=== PATIENT | female | born 1975 | race Hispanic/Latino ===

== ENCOUNTER 2016-06-21 20:55 | Inpatient (IN) | payer MEDICAID ==
[~2016-06-21] VITALS: Ht 170.2 cm; Wt 95.1 kg
[2016-06-21 21:02] VITALS: BP 116/78; PULSE 94; RESP 26; O2SAT 98
--- NOTE | 2016-06-21 21:31 | DRSVH ---
PROCEDURE: X-RAY CHEST, TWO VIEWS ([id number]) INDICATIONS: PAIN TECHNIQUE: 2 views of the chest were acquired. COMPARISON: [facility], , CHEST 1VW (PORTABLE), 03/29/2009, 13:24. FINDINGS: Surgical changes and devices: None. Lungs and pleura: No pleural effusions or pneumothorax. Lungs are clear. Mediastinum: Mediastinal contours are normal. Heart size is normal. Bones and chest wall: No suspicious bony abnormalities. Soft tissues appear unremarkable. IMPRESSION: No acute or active disease is seen in the two-view chest. Cause of right-sided chest pain is not identified. Dictated by: King Sanchez M.D. on 06/21/2016 at 21:29 Approved by: King Sanchez M.D. on 06/21/2016 at 21:29
[2016-06-22] VITALS (9 sets, daily range): BP systolic 99–112; BP diastolic 57–71; PULSE 61–88; RESP 18–21; O2SAT 95–100
--- NOTE | 2016-06-22 00:59 | ED.REPORT ---
HPI-General Illness Date of Service Jun 22, 2016 ED Provider: Dr. Josh Stoddard D.O. A healthy 40 year old female presents to the ED with right sided flank pain onset two days ago. The pain radiates across her back and is exacerbated with sneezing and coughing. She also reports vomiting secondary to her pain. The patient denies fever, dysuria, diarrhea, or any injury/trauma. Nursing Notes Stated Complaint: RT SIDED PAIN Chief Complaint: General Complaint Nursing Notes Reviewed: Yes Allergies: Coded Allergies: No Known Allergies (Verified , 12/27/15) Scheduled Levonorgestrel/Ethinyl Estradiol (Chateal) 1 Each Tablet 1 TABLET PO DAILY General Time Seen by MD: 00:59 Chief Complaint Other (Right-Sided Flank Pain) Hx Obtained From: Patient Arrived By: Walk-in Sudden in Onset?: No Onset Occurred: 2 days ago Symptom Duration: Since onset Location: : Abdomen (Right flank) Quality: Painful Severity: Current: Moderate Severity: Maximum: Moderate Associated with: Reports: Vomiting, Denies: Fever Exacerbated by: Moving affected area Pertinent Negative: Relieved by nothing Recent Healthcare: No recent doctor visit Similar Sx Previous: No Past Medical History Past Medical History Healthy Past Surgical History Denies Smoking History Never Smoker Social History Alcohol Use: In recovery Drug Use: Denies drug use Ambulatory Status Independent Review of Systems Full Review of Systems Constitutional: Denies: Fever GI: Reports: Diarrhea, Vomiting Female: Reports: Flank pain (Right ), Denies: Dysuria Musculoskeletal: Reports: Back pain Complete sys rev & neg: except as marked. Physical Exam Vital Signs Vital Signs Date Time Temp Pulse Resp B/P Pulse Ox O2 Delivery O2 Flow Rate FiO2 06/22/16 03:38 82 21 102/61 95 Room Air 06/21/16 21:02 36.8 94 26 116/78 98 Room Air Initial VS: Reviewed Head / Eyes: Atraumatic, Normocephalic ENT: Conjunctiva normal, No scleral icterus Neck: Supple, Full range of motion Respiratory: Breath sounds normal, Clear to auscultation, No respiratory distress Skin: Warm, Dry, No cyanosis Neurologic: Alert, Oriented, Nonfocal Psychiatric: Mood/affect normal, Behavior normal, Normal thought content General/Constitutional: Awake, Alert Cardiovascular: Heart rate NL, Regular rhythm Heart Rate / Rhythm: Positive: Tachycardia Abdomen: Soft Tenderness/Guarding/Rebound: Positive: Tender flank R R flank pain with ROM Abdomen benign Interpretation & Diagnostics Lab Results Interpretation Result Diagram: 06/22/16 1744 06/22/16 0121 Test 06/22/16 01:06 06/22/16 01:21 06/22/16 02:20 06/22/16 04:15 Urine Color Yellow (YELLOW) Urine Appearance Clear (CLEAR,HAZY) Urine pH 6.0 (5.0-8.0) Urine Specific [place] >1.030 (1.003-1.035) Urine Protein Negativemg/dL (NEG,TRACE) Urine Glucose (UA) Negativemg/dL (NEGATIVE) Urine Ketones Negativemg/dL (NEGATIVE) Urine Occult Blood Negative (NEGATIVE) Urine Nitrite Negative (NEGATIVE) Urine Bilirubin Negative (NEGATIVE) Urine Urobilinogen Normalmg/dL (NORMAL) Urine Leukocyte Esterase Negative (NEGATIVE) Urine RBC 0-2/hpf (0-2) Urine WBC 0-5/hpf (0-5) Urine Epithelial Cells Moderate/hpf (NONE-MOD) Urine Crystals None seen (NONE SEEN) Urine Bacteria Few/hpf (NONE-FEW) Urine Hyaline Casts None/lpf (NONE) Urine Granular Casts None seen (NONE SEEN) Urine Waxy Casts None seen (NONE SEEN) Urine Red Blood Cell Casts None seen (NONE SEEN) Urine White Blood Cell Casts None seen (NONE SEEN) Urine Mucus None seen (None Seen) Urine Trichomonas None seen (NONE SEEN) Urine Yeast None (NONE SEEN) Urinalysis Comment None Urine Culture Reflexed Not indicated D-Dimer 7.5mg/L (<0.50) Sodium Level 136mEq/L (134-144) Potassium Level 4.3mEq/L (3.5-5.2) Chloride Level 102mEq/L (97-108) Carbon Dioxide Level 21mmol/L (18-29) Blood Urea Nitrogen 12mg/dL (6-20) Creatinine 0.52mg/dL (0.57-1.00) Estimat Glomerular Filtration Rate 188mL/min (>59) Glucose Level 119mg/dL (60-99) Calcium Level 9.2mg/dL (8.5-10.1) Total Bilirubin 0.2mg/dL (0.0-1.2) Aspartate Amino Transf (AST/SGOT) 15U/L (0-50) Alanine Aminotransferase (ALT/SGPT) 12U/L (0-32) Alkaline Phosphatase 86U/L (25-150) Total Protein 8.0g/dL (6.4-8.4) Albumin 3.5g/dL (3.4-5.0) Hold Urine Received (Received) X-Ray Chest Interpretation Chest Xray Interpretation: IMPRESSION: No acute or active disease is seen in the two-view chest. Cause of right-sided chest pain is not identified. Dictated by: King Sanchez M.D. on 06/21/2016 at 21:29 View: AP & lat Interpretation / Wet Read by: Interpret - Radiologist CT Chest Interpretation CONCLUSION: Pulmonary emboli within the right upper lobe, right middle lobe, and bilateral lower lobe pulmonary arteries. Atelectasis at the right lung base. Findings discussed with Dr. Stoddard at 06/22/2016 3:17:28 AM PST Transmitted to ED by Josh Manrique M.D. at 06/22/2016 - 3:17:29 AM PST Study type: CT pulm angiogram Interpretation / Wet Read by: Interpret - Radiologist CT Abd / Pelvis Interpretation CONCLUSION: Bilateral lower lobe pulmonary emboli. Atelectasis at the right lung base. No acute intra-abdominal abnormality. Findings discussed with Dr. Stoddard at 06/22/2016 3:17:07 AM PST Transmitted to ED by Josh Manrique M.D. at 06/22/2016 - 3:17:09 AM PST Study type: Abdominal CT IV contrast Interpretation / Wet Read by: Interpret - Radiologist Re-Eval/Medical Decision Source of Hx: Old records Time of Eval: 02:08 Patient Status: Condition unchanged Re-Evaluation/Progress Note: Patient is still in pain. Discussed x-ray results and plan for CT. Patient agrees with plan for care and all questions were addressed. Time of Eval: 03:30 Patient Status: Condition improved Re-Evaluation/Progress Note: Discussed with patient CT and lab results, diagnosis, and plan for admit. Patient agrees with plan for care and all questions were addressed. Consultation : Referral / Consult Name: Kinjal Durand MD Consulted With: Hospitalist Call Returned at: 03:30 Car Chaser: Agrees with eval, Agrees with plan, Accepts admit Counseled Regarding: Diagnosis, Lab results, Need for admission Discharge & Departure Primary Impression: Pulmonary embolism Pulmonary embolism type: other Chronicity: acute Acute cor pulmonale presence: without acute cor pulmonale Qualified Code: I26.99 - Other pulmonary embolism without acute cor pulmonale Disposition: Home Discharge Condition All VS Reviewed: Yes Condition: Stable Referrals: NOPCP (PCP) Crit Care Except Billable Proc Time Spent: 30-74 minutes Services Performed: Patient management by me, Time spent at bedside, Reviewing test results, Reviewing imaging, Discussing patient care, Documentation in record Scribe Attestation Portions of this note were transcribed by Keerthi Mast. Dr. Arlyn Pro, personally performed the history, physical exam, and medical decision-making; I reviewed and confirmed the accuracy of the information in the transcribed note. Signed by: Faizan Telles, 06/22/2016, 03:49 Josh Stoddard DO Jun 22, 2016 00:59 KEERTHI MAST Jun 22, 2016 01:10 Car Chaser: Agrees with eval, Agrees with plan, Accepts admit Counseled Regarding: Diagnosis, Lab results, Need for admission Discharge & Departure Primary Impression: Pulmonary embolism Pulmonary embolism type: other Chronicity: acute Acute cor pulmonale presence: without acute cor pulmonale Qualified Code: I26.99 - Other pulmonary embolism without acute cor pulmonale Disposition: Home Discharge Condition All VS Reviewed: Yes Condition: Stable Referrals: NOPCP (PCP) Crit Care Except Billable Proc Time Spent: 30-74 minutes Services Performed: Patient management by me, Time spent at bedside, Reviewing test results, Reviewing imaging, Discussing patient care, Documentation in record Scribe Attestation Portions of this note were transcribed by Keerthi Mast. Dr. Arlyn Pro, personally performed the history, physical exam, and medical decision-making; I reviewed and confirmed the accuracy of the information in the transcribed note. Signed by: Faizan Telles, 06/22/2016, 03:49 Josh Stoddard DO Jun 22, 2016 00:59 KEERTHI MAST Jun 22, 2016 01:10
[2016-06-22] MEDS ORDERED: _oxyCODONE/APAP 5-325 mg Tablet PO PRN (01:10)
[2016-06-22] MEDS ORDERED: fentaNYL-PF 50 mCg/mL 2 mL Inj IVPUSH ONE (01:10)
[2016-06-22] MEDS ORDERED: _Ondansetron ODT 4 mg Tablet PO PRN (01:10)
[2016-06-22 01:32] LABS: BASOPHILS % (AUTO) 0.5 % (0-3); EOSINOPHILS % (AUTO) 3.2 % (0-5); MONOCYTES % (AUTO) 7.1 % (4-12); Mean Corpuscular Hemoglobin 30.9 pg (27.0-35.0); Mean Corpuscular Volume 90.1 fL (81-100); Platelet Count 225 bil/L (150-400)
[2016-06-22] MEDS: Ondansetron 2 mg/mL 2 mL Inj IVPUSH PRN ×2 (01:57→13:45)
[2016-06-22] MEDS ORDERED: Heparin 25K Unit/500mL 0.45 NS 25,000 UNIT in IV Premix 1 EACH IV ONE (03:20)
[2016-06-22] MEDS ORDERED: Heparin 5,000 Unit/mL Inj IVPUSH ONE (03:20)
[2016-06-22 03:22] LABS: APPEARANCE,URINE CLEAR (CLEAR,HAZY); COLOR,URINE YELLOW (YELLOW); OCCULT BLOOD,URINE NEGATIVE (NEGATIVE); UROBILINOGEN,URINE NORMAL (NORMAL)
[2016-06-22] MEDS: HYDROmorphone 0.5 mg/0.5 mL iSecure Syringe IVPUSH PRN ×4 (03:28→20:58)
[2016-06-22] MEDS ORDERED: LEVO1TAB59 PO (03:38)
[2016-06-22] MEDS ORDERED: Alum-Mag Hydrox-Simeth 30 mL Suspension PO PRN (03:50)
[2016-06-22] MEDS ORDERED: Ondansetron 2 mg/mL 2 mL Inj IVPUSH PRN (03:50)
[2016-06-22] MEDS ORDERED: Heparin 25K Unit/500mL 0.45 NS 25,000 UNIT in IV Premix 1 EACH IV SCH (03:50)
[2016-06-22] MEDS ORDERED: Heparin 5,000 Unit/mL Inj IVPUSH PRN (03:50)
--- NOTE | 2016-06-22 04:14 | PCM.HPMED ---
Subjective Date of Service Jun 22, 2016 Primary Provider: Admitting Physician: Primary Care Physician: Surekha Attending Physician: Chief Complaint: Right sided back pain History of Present Illness: This is a 40-year-old female who presents to the emergency room with right sided back pain started 2 days ago. She notes it was worse with movement and deep breath. She notes no particular injury. She notes that it got much worse today and presented to the emergency room. She was found on CTA of chest PE protocol to have multiple right-sided pulmonary emboli with one in the right main artery. She does currently use control pills had been on Norplant for about a year and that was removed last October and started control pills. She has had no recent long periods of immobilization. She has no family history of clotting disorders. She does not smoke. She does have shortness of breath with this but is hemodynamically stable. She denies any lower extremity edema. She denies any fevers or chills. She denies any lightheadedness. Denies any palpitations. Review of Systems: All other review of systems are reviewed and are negative except for as in history of present illness Allergies Coded Allergies: No Known Allergies (Verified , 12/27/15) Home Medications Scheduled Levonorgestrel/Ethinyl Estradiol (Chateal) 1 Each Tablet 1 TABLET PO DAILY PMH Obesity Surgical History Denies Family History Mother with a history of type II diabetes, hyperlipidemia and hypertension Social History Hx Alcohol Use: Yes (OCCAS) Hx Substance Use: No Smoking Status: Never Smoker Living Arrangement: with Family Exam Vital Signs Vital Sign - Last Date Time Temp Pulse Resp B/P Pulse Ox O2 Delivery O2 Flow Rate FiO2 06/22/16 03:38 82 21 102/61 95 Room Air 06/21/16 21:02 36.8 Exam Constitutional: Obese female in mild pain distress Head: Normocephalic atraumatic Eyes: PERRLA DC EOMI Mouth: No lesions Neck: Carotids 2+ over 4 without bruits Chest: Clear to auscultation, patient is tender to palpation over the right lower back area Cor: Regular rate and rhythm S1-S2 without murmur Abdomen: Soft nontender bowel sounds present Extremities: No pedal edema noted no redness Psych: Mood and affect are appropriate Neuro: Alert and oriented 3, motor strength is intact bilaterally Lab and Diagnostics Labs Laboratory Tests 72 Hours Test 06/22/16 01:06 1/11/17 01:21 06/22/16 02:20 Urine Color Yellow (YELLOW) Urine Appearance Clear (CLEAR,HAZY) Urine pH 6.0 (5.0-8.0) Urine Specific [place] >1.030 (1.003-1.035) Urine Protein Negativemg/dL (NEG,TRACE) Urine Glucose (UA) Negativemg/dL (NEGATIVE) Urine Ketones Negativemg/dL (NEGATIVE) Urine Occult Blood Negative (NEGATIVE) Urine Nitrite Negative (NEGATIVE) Urine Bilirubin Negative (NEGATIVE) Urine Urobilinogen Normalmg/dL (NORMAL) Urine Leukocyte Esterase Negative (NEGATIVE) Urine RBC 0-2/hpf (0-2) Urine WBC 0-5/hpf (0-5) Urine Epithelial Cells Moderate/hpf (NONE-MOD) Urine Crystals None seen (NONE SEEN) Urine Bacteria Few/hpf (NONE-FEW) Urine Hyaline Casts None/lpf (NONE) Urine Granular Casts None seen (NONE SEEN) Urine Waxy Casts None seen (NONE SEEN) Urine Red Blood Cell Casts None seen (NONE SEEN) Urine White Blood Cell Casts None seen (NONE SEEN) Urine Mucus None seen (None Seen) Urine Trichomonas None seen (NONE SEEN) Urine Yeast None (NONE SEEN) Urinalysis Comment None Urine Culture Reflexed Not indicated White Blood Count 11.0th/mm3 (3.8-10.1) Red Blood Count 4.34mil/mm3 (3.90-5.20) Hemoglobin 13.4g/dL (12.0-15.6) Hematocrit 39.1% (35.0-46.0) Mean Corpuscular Volume 90.1fL (81-100) Mean Corpuscular Hemoglobin 30.9pg (27.0-35.0) Mean Corpuscular Hemoglobin Concent 34.3% (32.0-37.0) Red Cell Distribution Width 13.4% (12.3-15.4) Platelet Count 225bil/L (150-400) Neutrophils (%) (Auto) 65.0% (40-74) Lymphocytes (%) (Auto) 24.0% (14-46) Monocytes (%) (Auto) 7.1% (4-12) Eosinophils (%) (Auto) 3.2% (0-5) Basophils (%) (Auto) 0.5% (0-3) Activated Partial Thromboplast Time 25.4sec (22.8-33.0) D-Dimer 7.5mg/L (<0.50) Sodium Level 136mEq/L (134-144) Potassium Level 4.3mEq/L (3.5-5.2) Chloride Level 102mEq/L (97-108) Carbon Dioxide Level 21mmol/L (18-29) Blood Urea Nitrogen 12mg/dL (6-20) Creatinine 0.52mg/dL (0.57-1.00) Estimat Glomerular Filtration Rate 188mL/min (>59) Glucose Level 119mg/dL (60-99) Calcium Level 9.2mg/dL (8.5-10.1) Total Bilirubin 0.2mg/dL (0.0-1.2) Aspartate Amino Transf (AST/SGOT) 15U/L (0-50) Alanine Aminotransferase (ALT/SGPT) 12U/L (0-32) Alkaline Phosphatase 86U/L (25-150) Total Protein 8.0g/dL (6.4-8.4) Albumin 3.5g/dL (3.4-5.0) Hold Urine Received (Received) Result Diagram: 06/22/1612006/22/16 0121 12-lead ECG Pending at the time of this dictation Assessment & Plan # Multiple right-sided PEs, acute, present on admission Initiate IV DVT PE heparin protocol There is no need to screen for inherited thrombophilia in this patient since she has now a personal history of VTE and it would be contraindicated to be on estrogen progesterone contraceptives in the future due to the risk of recurrent VTE. Placed on telemetry, check 12-lead EKG IV morphine when necessary pain We will need to start oral anticoagulant in next few days # DVT prophylaxis He is on therapeutic IV heparin # CODE STATUS Patient is full code Pain Evaluation: Adequate Pain Control VTE Prophylaxis: Other (DVT PE protocol IV heparin) Resuscitation Status: CPR: Attempt Resuscitation Time spent 60 minutes Kinjal Durand MD Jun 22, 2016 04:14
--- NOTE | 2016-06-22 07:32 | NUR ---
Admit note Pt admitted to ER # 2 an inpatient status. Admission assessment and screening completed on paper and provided to day RN. VSS. POC reviewed and discussed with pt and he verbalizes understating. Pt is appropriate and cooperative with care. Heparin gtt PE protocol initiated by [employer]. No overt complications noted.
--- NOTE | 2016-06-22 07:49 | NUR ---
transfer to PCC Report called to Kisha Sanz RN on PCC, pt transferred to PCC room 2030 at 0749 in stable condition. Heparin gtt infusing per protocol at 18 units/kg/hr, next PTT at 0900 per report, receiving RN aware. Pt transferred out of ER to PCC at 0749.
[2016-06-22] MEDS: Sodium Chloride LOK Flush 10 mL Syringe IVFLUSH SCH ×3 (08:30→23:45)
[2016-06-22 12:13] LABS: INR 1.01 ratio
--- NOTE | 2016-06-22 14:22 | DRSVH ---
PROCEDURE: CT ANGIO CHEST PULMONARY EMBOLISM ([id number]) INDICATIONS: pleuritic chest pain, right flank pain TECHNIQUE: After the administration of intravenous contrast, 2 mm thick sections acquired from the pulmonary api haroon to the posterior costophrenic angles. 3-dimensional maximum intensity projection (MIP) coronal a nd sagittal reformats were then acquired through the thorax. For radiation dose reduction, the follo wing was used: automated exposure control, adjustment of mA and/or kV according to patient size. COMPARISON: None. FINDINGS: Image quality: Excellent. Pulmonary arteries: Bilateral areas of pulmonary artery filling defects are identified no significant in the lower lobes. Extension is also identified into the right upper lobe. Lungs and pleura: There are patchy areas of opacity identified within the right base. Mediastinum: Heart size is normal, without pericardial effusion. No mediastinal or hilar adenopathy . Thoracic aorta is normal in caliber and enhancement. Esophagus is normal in caliber, without hiat al hernia. Bones and chest wall: No suspicious bony lesions. Ribs and thoracic spine appear intact throughout. Thyroid gland is unremarkable. No axillary or supraclavicular adenopathy. Abdomen: Visualized upper abdominal solid organs appear normal in the early arterial phase of enhanc ement. IMPRESSION: 1. Bilateral pulmonary emboli most significant in the lower lobes as above. 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 There is underlying a ir space disease such as pneumonia cannot be excluded. Dictated by: Katie Washington M.D. on 06/22/2016 at 14:20 Approved by: Katie Washington M.D. on 06/22/2016 at 14:20
--- NOTE | 2016-06-22 14:24 | DRSVH ---
PROCEDURE: CT ABDOMEN AND PELVIS WITH CONTRAST ([id number]) INDICATIONS: pleuritic chest pain, right flank pain TECHNIQUE: After the administration of intravenous contrast, 5 mm thick sections acquired from the diaphragm to the symphysis. 5 mm coronal and sagittal reformats were acquired. For radiation dose reduction, the following was used: automated exposure control, adjustment of mA and/or kV according to patient siz e. COMPARISON: None. FINDINGS: Image quality: Excellent. ABDOMEN: Lung bases: Partially visualized lower lobe pulmonary emboli as well as right basilar patchy opacitie s are noted. Solid organs: Liver and spleen are normal in size and enhancement. Gallbladder is unremarkable. Bi liary system is non dilated. Pancreas enhances normally. No adrenal nodules. Kidneys demonstrate n ormal size and enhancement, without hydronephrosis. Peritoneum and bowel: Bowel loops demonstrate normal wall thickness and caliber. No free fluid or a ir. Nodes and vessels: No retroperitoneal or mesenteric adenopathy by size criteria. Aorta and inferior vena cava are normal in size. Miscellaneous: Fat-containing ventral hernias are present. PELVIS: Genitourinary: Bladder wall thickness is normal. Miscellaneous: No inguinal hernias or adenopathy. Bones: No suspicious bony lesions. No vertebral body compression fractures. IMPRESSION: 1. Bibasilar pulmonary emboli and likely right lower lobe atelectasis. Please see CT chest report of 04/22/17 for further details. 2. No acute intra-abdominal or pelvic process. Dictated by: Katie Washington M.D. on 06/22/2016 at 14:22 Approved by: Katie Washington M.D. on 06/22/2016 at 14:22
[2016-06-22 14:51] LABS: BASOPHILS % (AUTO) 0.3 % (0-3); EOSINOPHILS % (AUTO) 2.7 % (0-5); MONOCYTES % (AUTO) 7.1 % (4-12); Mean Corpuscular Hemoglobin 30.5 pg (27.0-35.0); Mean Corpuscular Volume 91.2 fL (81-100); NEUTROPHILS % (AUTO) 58.7 % (40-74); Platelet Count 212 bil/L (150-400)
[2016-06-22] MEDS ORDERED: 0.9% Sodium Chloride 1,000 ML IV ONE (15:10)
[2016-06-22 16:13] LABS: BASOPHILS % (AUTO) 0.3 % (0-3); EOSINOPHILS % (AUTO) 2.1 % (0-5); MONOCYTES % (AUTO) 7.6 % (4-12); Mean Corpuscular Hemoglobin 30.3 pg (27.0-35.0); Mean Corpuscular Volume 91.4 fL (81-100); NEUTROPHILS % (AUTO) 67.3 % (40-74); Platelet Count 202 bil/L (150-400)
--- NOTE | 2016-06-22 17:26 | PCM.PNMED ---
Subjective Date of Service Jun 22, 2016 Subjective Patient is a 40-year-old female who presented to the emergency room with right sided back pain that began 2 days ago. She stated that her pain became increasing worse over the past two days and she became increasingly short of breath, prompting her visit to the ED. She stated this pain was the same as previous back pain she experienced and could not recall a specific injury. Pain increased with movement and deep breath. A CTA of chest PE protocol was completed in the ED and showed multiple right-sided pulmonary emboli with one in the right main artery. Only specific risk factor patient stated was current use control pills, started this past October after Norplant was removed. She has had no recent long periods of immobilization. She has no family history of clotting disorders. She does not smoke. No recent long distance travel. Denies any lower extremity edema, fevers or chills, syncope, palpitations. Today patient is stable she stated she is feeling short of breath but this has improved since admission, patient stated that when getting up to go to the bathroom she felt dizzy and nauseous, complaining of moderate right sided back pain from mid thoracic to upper lumbar that is reproducible on palpation,non radiating, and worse with movement. She denies fever, chills, vomiting, syncope , change in vision, change in bowel or bladder control. ROS negative except as mentioned above. Exam Vital Signs Vital Sign - Last Date Time Temp Pulse Resp B/P Pulse Ox O2 Delivery O2 Flow Rate FiO2 06/22/16 05:52 36.7 74 19 99/57 96 Room Air Exam Constitutional: female, Alert and oriented 3, no acute distress Head: Normocephalic atraumatic Eyes: PERRLA, EOMI, conjunctiva pale Mouth: No lesions, mucosa dry Neck: Carotids 2+ over 4 without bruits Chest: Clear to auscultation, patient is tender to palpation over the right lower back area and right anterior ribs Cor: Regular rate and rhythm S1-S2 without murmur/gallop/rub Abdomen: Soft nontender, normoactive bowel sounds present, no masses Extremities: No pedal edema noted no redness Psych: Mood and affect are appropriate Neuro: Grossly neurologically intact, motor strength is intact bilaterally IVs and Medications IV Fluids heparin drip per protocol discontinued 06/22/16 1 L NS bolus over 3 hours Lab and Diagnostics Laboratory Tests Test 06/22/16 01:06 06/22/16 01:21 06/22/16 02:20 06/22/16 04:15 Urine Color Yellow (YELLOW) Urine Appearance Clear (CLEAR,HAZY) Urine pH 6.0 (5.0-8.0) Urine Specific [place] >1.030 (1.003-1.035) Urine Protein Negativemg/dL (NEG,TRACE) Urine Glucose (UA) Negativemg/dL (NEGATIVE) Urine Ketones Negativemg/dL (NEGATIVE) Urine Occult Blood Negative (NEGATIVE) Urine Nitrite Negative (NEGATIVE) Urine Bilirubin Negative (NEGATIVE) Urine Urobilinogen Normalmg/dL (NORMAL) Urine Leukocyte Esterase Negative (NEGATIVE) Urine RBC 0-2/hpf (0-2) Urine WBC 0-5/hpf (0-5) Urine Epithelial Cells Moderate/hpf (NONE-MOD) Urine Crystals None seen (NONE SEEN) Urine Bacteria Few/hpf (NONE-FEW) Urine Hyaline Casts None/lpf (NONE) Urine Granular Casts None seen (NONE SEEN) Urine Waxy Casts None seen (NONE SEEN) Urine Red Blood Cell Casts None seen (NONE SEEN) Urine White Blood Cell Casts None seen (NONE SEEN) Urine Mucus None seen (None Seen) Urine Trichomonas None seen (NONE SEEN) Urine Yeast None (NONE SEEN) Urinalysis Comment None Urine Culture Reflexed Not indicated White Blood Count 11.0th/mm3 (3.8-10.1) Red Blood Count 4.34mil/mm3 (3.90-5.20) Hemoglobin 13.4g/dL (12.0-15.6) Hematocrit 39.1% (35.0-46.0) Mean Corpuscular Volume 90.1fL (81-100) Mean Corpuscular Hemoglobin 30.9pg (27.0-35.0) Mean Corpuscular Hemoglobin Concent 34.3% (32.0-37.0) Red Cell Distribution Width 13.4% (12.3-15.4) Platelet Count 225bil/L (150-400) Neutrophils (%) (Auto) 65.0% (40-74) Lymphocytes (%) (Auto) 24.0% (14-46) Monocytes (%) (Auto) 7.1% (4-12) Eosinophils (%) (Auto) 3.2% (0-5) Basophils (%) (Auto) 0.5% (0-3) Activated Partial Thromboplast Time 25.4sec (22.8-33.0) D-Dimer 7.5mg/L (<0.50) Sodium Level 136mEq/L (134-144) Potassium Level 4.3mEq/L (3.5-5.2) Chloride Level 102mEq/L (97-108) Carbon Dioxide Level 21mmol/L (18-29) Blood Urea Nitrogen 12mg/dL (6-20) Creatinine 0.52mg/dL (0.57-1.00) Estimat Glomerular Filtration Rate 188mL/min (>59) Glucose Level 119mg/dL (60-99) Calcium Level 9.2mg/dL (8.5-10.1) Total Bilirubin 0.2mg/dL (0.0-1.2) Aspartate Amino Transf (AST/SGOT) 15U/L (0-50) Alanine Aminotransferase (ALT/SGPT) 12U/L (0-32) Alkaline Phosphatase 86U/L (25-150) Total Protein 8.0g/dL (6.4-8.4) Albumin 3.5g/dL (3.4-5.0) Hold Urine Received (Received) Troponin T 0.010ug/L (0.0-0.011) Test 06/22/16 07:25 06/22/16 09:45 06/22/16 14:42 06/22/16 15:58 Prothrombin Time 10.8sec (8.1-12.5) Prothromb Time International Ratio 1.01ratio Activated Partial Thromboplast Time 106.0sec (22.8-33.0) 75.5sec (22.8-33.0) Troponin T < 0.010ug/L (0.0-0.011) < 0.010ug/L (0.0-0.011) White Blood Count 9.6th/mm3 (3.8-10.1) 9.9th/mm3 (3.8-10.1) Red Blood Count 4.19mil/mm3 (3.90-5.20) 4.29mil/mm3 (3.90-5.20) Hemoglobin 12.8g/dL (12.0-15.6) 13.0g/dL (12.0-15.6) Hematocrit 38.2% (35.0-46.0) 39.2% (35.0-46.0) Mean Corpuscular Volume 91.2fL (81-100) 91.4fL (81-100) Mean Corpuscular Hemoglobin 30.5pg (27.0-35.0) 30.3pg (27.0-35.0) Mean Corpuscular Hemoglobin Concent 33.5% (32.0-37.0) 33.2% (32.0-37.0) Red Cell Distribution Width 13.4% (12.3-15.4) 13.6% (12.3-15.4) Platelet Count 212bil/L (150-400) 202bil/L (150-400) Neutrophils (%) (Auto) 58.7% (40-74) 67.3% (40-74) Lymphocytes (%) (Auto) 31.0% (14-46) 22.6% (14-46) Monocytes (%) (Auto) 7.1% (4-12) 7.6% (4-12) Eosinophils (%) (Auto) 2.7% (0-5) 2.1% (0-5) Basophils (%) (Auto) 0.3% (0-3) 0.3% (0-3) Result Diagram: 06/22/16 0121 06/22/16 0121 X-Rays, CTs and MRIs Chest X Ray IMPRESSION: No acute or active disease is seen in the two-view chest. Cause of right-sided chest pain is not identified. Dictated by: King Sanchez M.D. on 06/21/2016 at 21:29 Approved by: King Sanchez M.D. on 06/21/2016 at 21:29 CT ABDOMEN AND PELVIS WITH CONTRAST IMPRESSION: 1. Bibasilar pulmonary emboli and likely right lower lobe atelectasis. Please see CT chest report of 04/22/17 for further details. 2. No acute intra-abdominal or pelvic process. Dictated by: Katie Washington M.D. on 06/22/2016 at 14:22 Approved by: Katie Washington M.D. on 06/22/2016 at 14:22 CT ANGIO CHEST PULMONARY EMBOLISM IMPRESSION: 1. Bilateral pulmonary emboli most significant in the lower lobes as above. Areas of opacification are present within the right lower lobe are likely chain sales representative of atelectasis. There is underlying air space disease such as pneumonia cannot be excluded. Dictated by: Katie Washington M.D. on 06/22/2016 at 14:20 Approved by: Katie Washington M.D. on 06/22/2016 at 14:20 Assessment & Plan Patient is a 40-year-old female who presented to the emergency room with right sided back pain that began 2 days ago and worsening shortness of breath. A CTA of chest PE protocol was completed in the ED and showed multiple right- sided pulmonary emboli with one in the right main artery. Admitted for treatment of right-sided pulmonary emboli. Hospital day 1. 1. Multiple right-sided PEs, acute, present on admission, active - Etiology at this time unknown, only risk factor identified at this time is use of Oral contraceptives - Continue IV DVT PE heparin protocol, switch to oral anticoagulation with Warfarin tonight or tomorrow morning, monitor INR to reach t - Screen for Hypercoagulable state protein C, S factor leiden V pending - Placed on telemetry, check 12-lead EKG pending - IV morphine when necessary pain - A1C ordered to r/o DM II 2. Right sided back pain, acute, present on admission - Etiology of pain unclear at this time, pain could be pleuritic pain associated with inflammation from the PE, consider MSK related pain, unlikely to be pyelonephritis, UTI, Nephrolithiasis, Retroperitoneal abscess due to CBC and UA negative for signs of infection and CT being negative for stones and abscess. - Continue to monitor and assess - Continue pain management - Zofran for nausea associated with narcotic pain medication 3. Dizziness, acute, not present on admission - Orthostatic ordered - Patient given 1 L NS bolus - Continue to assess DVT prophylaxis She is on therapeutic IV heparin CODE STATUS Patient is full code Disposition: Hospital stay > 2 nights to switch to oral anticoagulation therapy and reach therapeutic INR Pain Evaluation: Adequate Pain Control VTE Prophylaxis: Other (DVT PE protocol IV heparin) Resuscitation Status: CPR: Attempt Resuscitation Attending Statement The patient was seen and examined together with Dr. Marino on 06/22/2016 and I agree with the history, exam and plan as outlined in the note above. . MARQUIS MARINO DO Jun 22, 2016 06:54 Kadeem Wright MD Jun 23, 2016 12:32
[2016-06-22 17:51] LABS: BASOPHILS % (AUTO) 0.3 % (0-3); EOSINOPHILS % (AUTO) 1.6 % (0-5); MONOCYTES % (AUTO) 5.8 % (4-12); Mean Corpuscular Hemoglobin 30.6 pg (27.0-35.0); Mean Corpuscular Volume 91.2 fL (81-100); NEUTROPHILS % (AUTO) 71.9 % (40-74); Platelet Count 202 bil/L (150-400)
--- NOTE | 2016-06-22 19:40 | NUR ---
Flank pain/fatigue Patient alert and oriented x3, CROCKETT, reports full sensation, up SBA to BR voiding without complication. Patient reports dizziness with ambulation, fatigues very easily and SOB increases with movement -- SPO2 remained above 95%. Patient reported continuous right flank pain, ranging from 5-7/10 pain. At one point patient became nauseas from pain -- administered 0.5mg IV Dilaudid as well as 4mg IV zofran, patient reported relief.
[2016-06-23] VITALS (7 sets, daily range): BP systolic 103–115; BP diastolic 70–79; PULSE 72–96; RESP 16–18; O2SAT 95–96
[2016-06-23 05:14] LABS: BASOPHILS % (AUTO) 0.2 % (0-3); EOSINOPHILS % (AUTO) 0.3 % (0-5); MONOCYTES % (AUTO) 7.7 % (4-12); Mean Corpuscular Volume 91.2 fL (81-100); NEUTROPHILS % (AUTO) 69.6 % (40-74); Platelet Count 211 bil/L (150-400)
[2016-06-23 05:27] LABS: INR 0.95 ratio
--- NOTE | 2016-06-23 06:19 | NUR ---
Pain/Ortho BPs Pt c/o 8/10 right flank/back pain at beginning of shift and given Dilaudid which gave relief for a short period. Later pt moaning loudly d/t pain, pt hesitant to try morphine as she does not want to "get addicted." Education given on pain management and pt agreed to try morphine and Tylenol. After that pt's pain decreased to a 4/10 which she stated was tolerable and pt was able to sleep for some time. When reassessed again with vitals pt stated her pain was 2/10, explained that it worsened w/ cough/deep breaths/laughing/sneezing. Pt encouraged to report increasing pain in order to maintain adequate pain control. Ortho BPs done at start of shift and did not vary significantly, see vitals for numbers. 1L NS given after this per orders.
[2016-06-23] MEDS: Sodium Chloride LOK Flush 10 mL Syringe IVFLUSH SCH ×2 (07:57→16:51)
--- NOTE | 2016-06-23 08:47 | NUR ---
Social Work: Screen D: Per EMR review, pt is a 40 year old female admitted for bilateral pulmonary emboli. Pt is [facility] Medicaid Pending. Pt has no listed PCP. No NOK listed. Readmit score is 0. Advanced directives offered to pt by staff design engineer. Pt is from [place] and is I at baseline. Pt has remained I during admission. A: Pt who is I at baseline. 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 FRITZ Crystal
[2016-06-23] MEDS: oxyCODONE-Acetamin 5-325 mg Tablet PO PRN ×3 (11:52→23:06)
--- NOTE | 2016-06-23 11:55 | PCM.PNMED ---
Subjective Date of Service Jun 23, 2016 Subjective Patient is a 40-year-old female with no prior past medical history admitted for treatment of right sided PE. Only specific risk factor patient stated was current use control pills, started this past October after Norplant was removed. She has had no recent long periods of immobilization. She has no family history of clotting disorders. She does not smoke. No recent long distance travel. Denies any lower extremity edema, fevers or chills, syncope, palpitations. Hospital Day 2 Today patient is complains of back pain once pain medication wears off. She denies decreased appetite, fever, chills, headache, rash, loss of bowel or bladder control, change in vision. ROS negative except as mentioned above. Exam Vital Signs Vital Sign - Last Date Time Temp Pulse Resp B/P Pulse Ox O2 Delivery O2 Flow Rate FiO2 06/23/16 04:58 37.3 78 16 103/70 96 Room Air Intake and Output 06/22/16 06/22/16 06/23/16 Cumulative From/Thru 15:00 23:00 07:00 06/21/16 21:02 - 06/23/16 06:50 Intake Total 640 ml 5000 ml 5900 ml Output Total 3 ml 650 ml 653 ml Balance 637 ml 4350 ml 5247 ml Intake Oral 640 ml 4000 ml 4900 ml IV Total 1000 ml 1000 ml Output Urine Total 3 ml 650 ml 653 ml # Voids 1 2 # Bowel Movements 1 Exam Constitutional: female, Alert and oriented 3, no acute distress Head: Normocephalic atraumatic Eyes: PERRLA, EOMI, conjunctiva pale Mouth: No lesions, mucosa dry Neck: Carotids 2+ over 4 without bruits Chest: Clear to auscultation, patient is tender to palpation over the right lower back area and right anterior ribs Cor: Regular rate and rhythm S1-S2 without murmur/gallop/rub Abdomen: Soft nontender, normoactive bowel sounds present, no masses Extremities: No pedal edema noted no redness Psych: Mood and affect are appropriate Neuro: Grossly neurologically intact, motor strength is intact bilaterally IVs and Medications Medications Percocet 5-325 Coumadin 10 mg Zofran PRN Acetaminophen Senna Miralax Lab and Diagnostics Laboratory Tests Test 06/22/16 14:42 06/22/16 15:58 06/22/16 17:44 06/23/16 04:55 White Blood Count 9.6th/mm3 (3.8-10.1) 9.9th/mm3 (3.8-10.1) 10.0th/mm3 (3.8-10.1) 10.4th/mm3 (3.8-10.1) Red Blood Count 4.19mil/mm3 (3.90-5.20) 4.29mil/mm3 (3.90-5.20) 4.41mil/mm3 (3.90-5.20) 4.10mil/mm3 (3.90-5.20) Hemoglobin 12.8g/dL (12.0-15.6) 13.0g/dL (12.0-15.6) 13.5g/dL (12.0-15.6) 12.3g/dL (12.0-15.6) Hematocrit 38.2% (35.0-46.0) 39.2% (35.0-46.0) 40.2% (35.0-46.0) 37.4% (35.0-46.0) Mean Corpuscular Volume 91.2fL (81-100) 91.4fL (81-100) 91.2fL (81-100) 91.2fL (81-100) Mean Corpuscular Hemoglobin 30.5pg (27.0-35.0) 30.3pg (27.0-35.0) 30.6pg (27.0-35.0) 30.0pg (27.0-35.0) Mean Corpuscular Hemoglobin Concent 33.5% (32.0-37.0) 33.2% (32.0-37.0) 33.6% (32.0-37.0) 32.9% (32.0-37.0) Red Cell Distribution Width 13.4% (12.3-15.4) 13.6% (12.3-15.4) 13.5% (12.3-15.4) 13.4% (12.3-15.4) Platelet Count 212bil/L (150-400) 202bil/L (150-400) 202bil/L (150-400) 211bil/L (150-400) Neutrophils (%) (Auto) 58.7% (40-74) 67.3% (40-74) 71.9% (40-74) 69.6% (40-74 ) Lymphocytes (%) (Auto) 31.0% (14-46) 22.6% (14-46) 20.0% (14-46) 21.9% (14-46 ) Monocytes (%) (Auto) 7.1% (4-12) 7.6% (4-12) 5.8% (4-12) 7.7% (4-12) Eosinophils (%) (Auto) 2.7% (0-5) 2.1% (0-5) 1.6% (0-5) 0.3% (0-5) Basophils (%) (Auto) 0.3% (0-3) 0.3% (0-3) 0.3% (0-3) 0.2% (0-3) Activated Partial Thromboplast Time 75.5sec (22.8-33.0) 28.9sec (22.8-33.0) Troponin T < 0.010ug/L (0.0-0.011) Prothrombin Time 10.1sec (8.1-12.5) Prothromb Time International Ratio 0.95ratio Sodium Level 138mEq/L (134-144) Potassium Level 4.6mEq/L (3.5-5.2) Chloride Level 105mEq/L (97-108) Carbon Dioxide Level 24mmol/L (18-29) Blood Urea Nitrogen 7mg/dL (6-20) Creatinine 0.43mg/dL (0.57-1.00) Estimat Glomerular Filtration Rate 234mL/min (>59) Glucose Level 125mg/dL (60-99) Calcium Level 8.6mg/dL (8.5-10.1) Total Bilirubin 0.2mg/dL (0.0-1.2) Aspartate Amino Transf (AST/SGOT) 12U/L (0-50) Alanine Aminotransferase (ALT/SGPT) 12U/L (0-32) Alkaline Phosphatase 78U/L (25-150) Total Protein 6.6g/dL (6.4-8.4) Albumin 3.2g/dL (3.4-5.0) Triglycerides Level 100mg/dL (0-149) Cholesterol Level 126mg/dL (100-199) LDL Cholesterol, Calculated 72.000mg/dL (0-99) VLDL Cholesterol 20.000mg/dL HDL Cholesterol 34mg/dL (>39) Cholesterol/HDL Ratio 3.71 (0.0-4.4) Result Diagram: 06/23/16 0455 06/23/16 0455 X-Rays, CTs and MRIs Chest X Ray IMPRESSION: No acute or active disease is seen in the two-view chest. Cause of right-sided chest pain is not identified. Dictated by: King Sanchez M.D. on 06/21/2016 at 21:29 Approved by: King Sanchez M.D. on 06/21/2016 at 21:29 CT ABDOMEN AND PELVIS WITH CONTRAST IMPRESSION: 1. Bibasilar pulmonary emboli and likely right lower lobe atelectasis. Please see CT chest report of 04/22/17 for further details. 2. No acute intra-abdominal or pelvic process. Dictated by: Katie Washington M.D. on 06/22/2016 at 14:22 Approved by: Katie Washington M.D. on 06/22/2016 at 14:22 CT ANGIO CHEST PULMONARY EMBOLISM IMPRESSION: 1. Bilateral pulmonary emboli most significant in the lower lobes as above. Areas of opacification are present within the right lower lobe are likely chemical sales representative of atelectasis. There is underlying air space disease such as pneumonia cannot be excluded. Dictated by: Katie Washington M.D. on 06/22/2016 at 14:20 Approved by: Katie Washington M.D. on 06/22/2016 at 14:20 Assessment & Plan Patient is a 40-year-old female who presented to the emergency room with right sided back pain that began 2 days ago and worsening shortness of breath. A CTA of chest PE protocol was completed in the ED and showed multiple right- sided pulmonary emboli with one in the right main artery. Admitted for treatment of right-sided pulmonary emboli. Hospital day 2. 1. 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 Right sided back pain, acute, present on admission - Etiology of pain unclear at this time, pain could be pleuritic pain associated with inflammation from the PE, consider MSK related pain, unlikely to be pyelonephritis, UTI, Nephrolithiasis, Retroperitoneal abscess due to CBC and UA negative for signs of infection and CT being negative for stones and abscess. - Continue to monitor and assess - Continue pain management, D/C IV narcotics, switch to PO Percocet 5-325 Q4 - Zofran for nausea associated with narcotic pain medication 3. Dizziness, acute, not present on admission, resolved - Orthostatic, negative - Patient given 1 L NS bolus - Reassess if needed DVT prophylaxis She is on therapeutic IV heparin CODE STATUS Patient is full code Disposition: Okay to transfer off of PCC, Hospital stay > 2 nights to switch to oral anticoagulation therapy and reach therapeutic INR VTE Prophylaxis: Other (DVT PE protocol IV heparin) VTE Mechanical Devices: Intermittant Pneumatic CD Resuscitation Status: CPR: Attempt Resuscitation Attending Statement The patient was seen and examined together with Dr. Marino on 06/23/2016 and I agree with the history, exam and plan as outlined in the note above. . MARQUIS MARINO DO Jun 23, 2016 06:58 Kadeem Wright MD Jun 24, 2016 17:14
[2016-06-23] MEDS ORDERED: HYDROmorphone 0.5 mg/0.5 mL iSecure Syringe IVPUSH ONE (12:55)
--- NOTE | 2016-06-23 19:32 | NUR ---
Pain Patient continues to have some right flank pain. Patient states that pain increases with activity, states that ordered medications are keeping pain within a tolerable level. Care is ongoing.
[2016-06-24] MEDS: Sodium Chloride LOK Flush 10 mL Syringe IVFLUSH SCH ×3 (00:37→16:53)
[2016-06-24] MEDS: oxyCODONE-Acetamin 5-325 mg Tablet PO PRN ×5 (04:12→21:32)
[2016-06-24 05:45] VITALS: BP 96/60; PULSE 91; RESP 16; O2SAT 93
--- NOTE | 2016-06-24 05:56 | NUR ---
Pain Pain only tolerably controlled when pain meds are given within 4-5 hours, when pt awoke to severe pain it took longer than was comfortable to reduce pain to tolerable level. No new report of SOB. Hourly rounding ongoing.
[2016-06-24 06:46] LABS: BASOPHILS % (AUTO) 0.2 % (0-3); MONOCYTES % (AUTO) 7.2 % (4-12); Mean Corpuscular Volume 92.1 fL (81-100); NEUTROPHILS % (AUTO) 65.4 % (40-74); Platelet Count 224 bil/L (150-400)
[2016-06-24 07:00] LABS: INR 1.97 ratio
[2016-06-24] MEDS: Polyethylene Glycol (PEG) 17 Gm Powder PO PRN (08:23)
[2016-06-24 10:24] VITALS: BP 103/70; PULSE 78; RESP 18; O2SAT 95
--- NOTE | 2016-06-24 13:39 | DRSVH ---
[facility] [address] [place] [address] Echocardiogram Report Name: MICHAEL VELÁZQUEZ Study Date: 06/24/2016 Height: 26.5 in Hospital Exam Location: [facility] Weight: 472 lb Gender: Female BSA: 1.5 m2 : 1975 Age: 40 yrs BP: 103/70 mmHg Reason For Study: PULMONARY EMBOLISM, HYPOTENSION Ordering Physician: Performed By: Sindy Guzman Interpretation Summary The left ventricle is normal in size. The ejection fraction is estimated to be 60-65%. The right ventricle is normal size. The right ventricular systolic function is normal. Distal RV wall hypokinesis. There is trace tricuspid regurgitation. The right ventricular systolic pressure is estimated at 30 mmHg assuming a right atrial pressure of 3 mm Hg. The IVC is of normal diameter and collapses greater than 50% with a sniff. This suggests a low right atrial pressure of 3 mm Hg. Procedure: A two-dimensional transthoracic echocardiogram with color flow and Doppler was performed. The apical views were difficult to obtain and are suboptimal in quality. A contrast injection of Definity was performed to improve assessment of LV function. Contrast was injected into an intravenous site in the right arm. A total of 5 cc of contrast was given. There is no prior echocardiogram noted for this patient. The pataient did well with the Definity Contrast. Left Ventricle: The left ventricle is normal in size. There is normal left ventricular wall thickness. There is no thrombus. The ejection fraction is estimated to be 60-65%. There are no focal wall motion abnormalities. Spectral Doppler of the mitral valve shows a normal E/A wave ratio. Right Ventricle: The right ventricle is normal size. Distal RV wall hypokinesis. The right ventricular systolic function is normal. Atria: The left atrial size is normal. The right atrium is mildly dilated. There is no Doppler evidence for an atrial septal defect. Mitral Valve: The mitral valve leaflets appear normal. There is no evidence of stenosis, fluttering, or prolapse. There is no mitral regurgitation noted. Aortic Valve: The aortic valve is not well visualized. The aortic valve is trileaflet. The aortic valve opens well. There is no aortic valve stenosis. No aortic regurgitation is present. Tricuspid Valve: The tricuspid valve leaflets are thin and pliable. The right ventricular systolic pressure is estimated at 30 mmHg assuming a right atrial pressure of 3 mm Hg. There is trace tricuspid regurgitation. Pulmonic Valve: The pulmonic valve is not well seen, but is grossly normal. There is trace pulmonic regurgitation. Great Vessels: The aortic root is normal size. The dimensions of the ascending aorta are normal. The pulmonary artery is normal size. The IVC was not well visualized secondary to technical limitations making central venous pressures difficult to estimate. The IVC is of normal diameter and collapses greater than 50% with a sniff. This suggests a low right atrial pressure of 3 mm Hg. Pericardium/ Pleura There is no pericardial effusion. There is no pleural effusion. MMode/2D Measurements & Calculations LVIDd: 4.7 cm LA dimension: 3.3 cm RA long axis LVOT diam: 2.1 cm LVIDs: 3.0 cm AoV Openin.8 cm FS: 35.8 % LA A2 area: 15.1 cm RA area Ao root diam: 2.9 cm EPSS: 0.37 cm LA A4 area: 15.6 cm asc Aorta Diam IVSd: 0.66 cm LA length (vol) : 20.0 cm LVPWd: 0.73 cm RA vol Ao Arch Diam LA vol: 36.0 ml : 63.2 ml (Proximal trans.) LA vol index RA : 42.7 mm/ : 24.3 ml/m2 RVDd major : 6.9 cm LV farmer. diameter/BSALV sys. diameter/BSA RVD1 (basal) RVD2 (mid): 2.9 cm (cm/m^2): 3.2 (cm/m^2): 2.0 Doppler Measurements & Calculations Ao V2 max MV E max jose de jesus MV E/A: 1.4 TR max jose de jesus : 155.2 cm/sec : 87.5 cm/sec Med Peak E' Jose De Jesus : 259.0 cm/sec Ao max PG MV A max jose de jesus TR max P.8 mmHg : 9.6 mmHg : 63.6 cm/sec E/E' med: 7.4 PA V2 max Ao mean PG MV P1/2t: 56.7 msec Lat Peak E' Jose De Jesus : 113.8 cm/sec PA mean P.9 mmHg LVOT Max Jose De Jesus E/E' lat: 7.0 PA Accel Time : 110.8 cm/sec Pulm A Revs Dur : 0.03 sec ALEXANDER(I,D): 2.7 cm sev ratio MV A dur: 0.11 sec MV dec time MV P1/2t max jose de jesus Ao V2 mean LV V1 max PG : 0.19 sec : 109.5 cm/sec Ao V2 VTI: 30.0 cmLV V1 VTI: 22.9 cm MVA(P1/2t): 3.9 cm2 ALEXANDER(V,D): 2.5 cm2 PA V2 mean ALEXANDER indexed to BSA E/e' average: 7.2 Pulm A Revs Dur - MV : 63.0 cm/sec (cm^2/m^2): 1.8 A Dur: 0.00 msec Reading Physician:PM
[2016-06-24 14:45] VITALS: BP 110/73; PULSE 84; RESP 20; O2SAT 97
--- NOTE | 2016-06-24 16:20 | NUR ---
[facility] contacted for follow up on Medicaid to assist with discharge medications. Magdy HU
--- NOTE | 2016-06-24 17:51 | PCM.PNMED ---
Subjective Date of Service Jun 24, 2016 Subjective reports right pleuritic chest pain and lightheadedness especially when ambulating. Exam Vital Signs Vital Sign - Last Date Time Temp Pulse Resp B/P Pulse Ox O2 Delivery O2 Flow Rate FiO2 06/24/16 14:45 36.8 84 20 110/73 97 Room Air Intake and Output 06/23/16 06/23/16 06/24/16 Cumulative From/Thru 15:00 23:00 07:00 06/21/16 21:02 - 06/24/16 06:34 Intake Total 920 ml 400 ml 7220 ml Output Total 300 ml 650 ml 1603 ml Balance 620 ml -250 ml 5617 ml Intake Oral 920 ml 400 ml 6220 ml IV Total 1000 ml Output Urine Total 300 ml 650 ml 1603 ml # Voids 1 3 # Bowel Movements 0 1 General: Alert, Cooperative, No Acute Distress Eyes: Scleral Anicteric Mouth: Mucous Membr Moist/[employer] Neck: Supple Chest & Lungs: Chest Wall Normal, Clear to auscultation & percussion Cardiovascular: Regular Rate/Rhythm Abdomen: Non-tender, Non-distended, Normoactive bowel tones, Soft Extremities: No cyanosis/clubbing/edma bilat Neurological: Grossly Neurologically Intact, Normal Speech IVs and Medications Medications Reviewed: Medications were reviewed in detail Lab and Diagnostics Result Diagram: 06/24/1660406/24/16 06 X-Rays, CTs and MRIs Chest X Ray IMPRESSION: No acute or active disease is seen in the two-view chest. Cause of right-sided chest pain is not identified. Dictated by: King Sanchez M.D. on 06/21/2016 at 21:29 Approved by: King Sanchez M.D. on 06/21/2016 at 21:29 CT ABDOMEN AND PELVIS WITH CONTRAST IMPRESSION: 1. Bibasilar pulmonary emboli and likely right lower lobe atelectasis. Please see CT chest report of 04/22/17 for further details. 2. No acute intra-abdominal or pelvic process. Dictated by: Katie Washington M.D. on 06/22/2016 at 14:22 Approved by: Katie Washington M.D. on 06/22/2016 at 14:22 CT ANGIO CHEST PULMONARY EMBOLISM IMPRESSION: 1. Bilateral pulmonary emboli most significant in the lower lobes as above. Areas of opacification are present within the right lower lobe are likely business services sales representative of atelectasis. There is underlying air space disease such as pneumonia cannot be excluded. Dictated by: Katie Washington M.D. on 06/22/2016 at 14:20 Approved by: Katie Washington M.D. on 06/22/2016 at 14:20 Assessment & Plan 40-year-old female who presented to the emergency room with right sided back pain that began 2 days ago and worsening shortness of breath. A CTA of chest PE protocol was completed in the ED and showed multiple pulmonary emboli. 1. Acute Multiple PEs, present on admission, active - Etiology at this time unknown, only risk factor identified at this time is use of Oral contraceptives - Continue with heparin to Warfarin bridge and monitor INR per pharmacy - f/u pending Hypercoagulable panel - c/w pain control and supportive care - check Echo given report of lightheadedness and noted mild hypotension Dispo: likely 1-2 days pending therapeutic INR VTE Prophylaxis: Other (DVT PE protocol IV heparin) VTE Mechanical Devices: Intermittant Pneumatic CD Resuscitation Status: CPR: Attempt Resuscitation Ashok Hernandez Jun 24, 2016 17:51
--- NOTE | 2016-06-24 19:07 | NUR ---
Pain Patient continues to have some pain on the right side of her back. Patient reports that ordered pain medication along with positioning keeps pain at a tolerable level. Patient alert and oriented, denies nausea. Care is ongoing.
[2016-06-24 20:35] VITALS: BP 117/78; PULSE 82; RESP 18; O2SAT 97
[2016-06-24 23:07] LABS: Protein C-Functional 106 % (73-180)
[2016-06-25] MEDS: Sodium Chloride LOK Flush 10 mL Syringe IVFLUSH SCH ×3 (00:30→17:07)
[2016-06-25] MEDS: oxyCODONE-Acetamin 5-325 mg Tablet PO PRN ×5 (02:46→21:55)
[2016-06-25 05:27] VITALS: BP 112/73; PULSE 83; RESP 18; O2SAT 94
--- NOTE | 2016-06-25 05:42 | NUR ---
Pain pt has pain her R flank. she has been taking 1 percocet. she also likes to position herself on her L side with a pillow under her R side, she says the pressure from the pillow takes away some of the pain. she still endorses being lightheaded and SOB with ambulation. pt has been asked to call for assistance before getting out of bed. care continues.
[2016-06-25 07:28] LABS: BASOPHILS % (AUTO) 0.3 % (0-3); EOSINOPHILS % (AUTO) 1.3 % (0-5); MONOCYTES % (AUTO) 7.6 % (4-12); Mean Corpuscular Hemoglobin 30.3 pg (27.0-35.0); Mean Corpuscular Volume 90.5 fL (81-100); NEUTROPHILS % (AUTO) 65.5 % (40-74); Platelet Count 239 bil/L (150-400)
[2016-06-25] MEDS: Polyethylene Glycol (PEG) 17 Gm Powder PO PRN (09:01)
[2016-06-25 14:35] VITALS: BP 110/76; PULSE 84; RESP 18; O2SAT 97
--- NOTE | 2016-06-25 17:36 | NUR ---
PAIN Patient rated her pain as 6/10 over her back. Percocet 1 tab PO has been effective for pain control. Tolerating liquids PO and her diet well. Denies nausea. No emesis noted. Denies SOB. Ambulating independently/with SBA in the room. Tolerating activity fairly. Care continues.
--- NOTE | 2016-06-25 20:02 | PCM.PNMED ---
Subjective Date of Service Jun 25, 2016 Subjective ongoing pleurtic pain, ongoing dizziness w/ ambulation Exam Vital Signs Vital Sign - Last Date Time Temp Pulse Resp B/P Pulse Ox O2 Delivery O2 Flow Rate FiO2 06/25/16 14:35 36.7 84 18 110/76 97 Room Air Intake and Output 06/24/16 06/24/16 06/25/16 Cumulative From/Thru 14:59 22:59 06:59 06/21/16 21:02 - 06/25/16 05:27 Intake Total 600 ml 700 ml 8520 ml Output Total 1603 ml Balance 600 ml 700 ml 6917 ml Intake Oral 600 ml 700 ml 7520 ml IV Total 1000 ml Output Urine Total 1603 ml # Voids 3 2 8 # Bowel Movements 1 Exam NAD A and O x 3 CTAB RRR soft + BS [facility] Lab and Diagnostics Result Diagram: 06/25/16 0648 06/25/16 0648 X-Rays, CTs and MRIs Chest X Ray IMPRESSION: No acute or active disease is seen in the two-view chest. Cause of right-sided chest pain is not identified. Dictated by: King Sanchez M.D. on 06/21/2016 at 21:29 Approved by: King Sanchez M.D. on 06/21/2016 at 21:29 CT ABDOMEN AND PELVIS WITH CONTRAST IMPRESSION: 1. Bibasilar pulmonary emboli and likely right lower lobe atelectasis. Please see CT chest report of 04/22/17 for further details. 2. No acute intra-abdominal or pelvic process. Dictated by: Katie Washington M.D. on 06/22/2016 at 14:22 Approved by: Katie Washington M.D. on 06/22/2016 at 14:22 CT ANGIO CHEST PULMONARY EMBOLISM IMPRESSION: 1. Bilateral pulmonary emboli most significant in the lower lobes as above. Areas of opacification are present within the right lower lobe are likely sales representative womens health of atelectasis. There is underlying air space disease such as pneumonia cannot be excluded. Dictated by: Katie Washington M.D. on 06/22/2016 at 14:20 Approved by: Katie Washington M.D. on 06/22/2016 at 14:20 Cardiac Echo Impressions The left ventricle is normal in size. The ejection fraction is estimated to be 60-65%. The right ventricle is normal size. The right ventricular systolic function is normal. Distal RV wall hypokinesis. There is trace tricuspid regurgitation. The right ventricular systolic pressure is estimated at 30 mmHg assuming a right atrial pressure of 3 mm Hg. The IVC is of normal diameter and collapses greater than 50% with a sniff. This suggests a low right atrial pressure of 3 mm Hg. Assessment & Plan 40-year-old female who presented to the emergency room with right sided back pain that began 2 days ago and worsening shortness of breath. A CTA of chest PE protocol was completed in the ED and showed multiple pulmonary emboli. Acute Multiple PEs, present on admission, active - Etiology at this time unknown, only risk factor identified Oral contraceptives - off heparin/lovenox to Warfarin bridge - therapeutic INR 06/25/2016 - f/u pending Hypercoagulable panel - c/w pain control and supportive care - Echo w/ RV hypokinesis, given report of lightheadedness and noted mild hypotension -pending TSH/cortisol for hypotesion work up --ongong percocet w/ pleuritic chest pain no better pending PT for ambulation monitor dizziness pending RD for diet restrictions on coumadin Dispo: likely 1-2 days now therapeutic INR, and lacking insurance, pending insurance but unclear until monday, anticipate needs for PCP, coumadin clinic and contact center representative f/u VTE Prophylaxis: Other (DVT PE protocol IV heparin) VTE Mechanical Devices: Intermittant Pneumatic CD Resuscitation Status: CPR: Attempt Resuscitation Yin Nunez MD Jun 25, 2016 20:02
[2016-06-25 20:50] VITALS: BP 93/66; PULSE 89; RESP 16; O2SAT 97
[2016-06-26] MEDS: Sodium Chloride LOK Flush 10 mL Syringe IVFLUSH SCH ×3 (00:30→16:17)
--- NOTE | 2016-06-26 04:18 | NUR ---
Pain pt complaining of pain on the R side of her back. the percocet 1 tab has been effective in controlling her pain. she has lots of questions about what medications she will have to take at home and follow up appointments. nurse answered what questions she could and assured patient that the physcian will give her detailed instructions on her medications and follow up appointments. resting comfortably at this time. care continues.
[2016-06-26 05:45] VITALS: BP 107/75; PULSE 84; RESP 16; O2SAT 97
[2016-06-26 07:46] LABS: BASOPHILS % (AUTO) 0.4 % (0-3); EOSINOPHILS % (AUTO) 1.8 % (0-5); MONOCYTES % (AUTO) 7.4 % (4-12); Mean Corpuscular Hemoglobin 30.3 pg (27.0-35.0); Mean Corpuscular Volume 91.1 fL (81-100); NEUTROPHILS % (AUTO) 64.5 % (40-74); Platelet Count 268 bil/L (150-400)
[2016-06-26 08:04] LABS: INR 1.7 ratio
[2016-06-26] MEDS: oxyCODONE-Acetamin 5-325 mg Tablet PO PRN ×2 (08:14→16:17)
--- NOTE | 2016-06-26 10:11 | NUR ---
Evaluation completed. Please go to "Notes" then click on "Assessments and Notes" (bottom left corner of screen). Then select appropriate discipline tab on top of screen.
[2016-06-26] MEDS: Polyethylene Glycol (PEG) 17 Gm Powder PO PRN (11:55)
--- NOTE | 2016-06-26 12:37 | PCM.PNMED ---
Subjective Date of Service Jun 26, 2016 Subjective Patient does continue to have pleuritic chest pain secondary to pulmonary emboli mostly on her left side. She has ambulated some with physical therapy today and according to patient's report she felt like she was doing okay. Exam Vital Signs Vital Sign - Last Date Time Temp Pulse Resp B/P Pulse Ox O2 Delivery O2 Flow Rate FiO2 06/26/16 05:45 37.1 84 16 107/75 97 Room Air Intake and Output 06/25/16 06/25/16 06/26/16 Cumulative From/Thru 15:00 23:00 07:00 06/21/16 21:02 - 06/26/16 05:00 Intake Total 1320 ml 9840 ml Output Total 1603 ml Balance 1320 ml 8237 ml Intake Oral 1320 ml 8840 ml IV Total 1000 ml Output Urine Total 1603 ml # Voids 3 11 # Bowel Movements 1 Exam Constitutional: Patient with some pain and discomfort with movement Head: Normocephalic atraumatic Chest: Clear to auscultation Cor: Regular rate and rhythm S1-S2 Abdomen: Soft nontender bowel sounds present Extremities: No pedal edema noted Lab and Diagnostics Laboratory Tests 72 Hours Test 06/24/16 06:05 06/25/16 06:48 06/26/16 06:53 White Blood Count 10.0th/mm3 (3.8-10.1) 10.3th/mm3 (3.8-10.1) 9.6th/mm3 (3.8-10.1) Red Blood Count 4.16mil/mm3 (3.90-5.20) 4.33mil/mm3 (3.90-5.20) 4.26mil/mm3 (3.90-5.20) Hemoglobin 12.9g/dL (12.0-15.6) 13.1g/dL (12.0-15.6) 12.9g/dL (12.0-15.6) Hematocrit 38.3% (35.0-46.0) 39.2% (35.0-46.0) 38.8% (35.0-46.0) Mean Corpuscular Volume 92.1fL (81-100) 90.5fL (81-100) 91.1fL (81-100) Mean Corpuscular Hemoglobin 31.0pg (27.0-35.0) 30.3pg (27.0-35.0) 30.3pg (27.0-35.0) Mean Corpuscular Hemoglobin Concent 33.7% (32.0-37.0) 33.4% (32.0-37.0) 33.2% (32.0-37.0) Red Cell Distribution Width 13.4% (12.3-15.4) 13.2% (12.3-15.4) 13.2% (12.3-15.4) Platelet Count 224bil/L (150-400) 239bil/L (150-400) 268bil/L (150-400) Neutrophils (%) (Auto) 65.4% (40-74) 65.5% (40-74) 64.5% (40-74) Lymphocytes (%) (Auto) 25.9% (14-46) 25.0% (14-46) 25.6% (14-46) Monocytes (%) (Auto) 7.2% (4-12) 7.6% (4-12) 7.4% (4-12) Eosinophils (%) (Auto) 1.0% (0-5) 1.3% (0-5) 1.8% (0-5) Basophils (%) (Auto) 0.2% (0-3) 0.3% (0-3) 0.4% (0-3) Prothrombin Time 21.4sec (8.1-12.5) 32.8sec (8.1-12.5) 18.4sec (8.1-12.5) Prothromb Time International Ratio 1.97ratio 3.00ratio 1.70ratio Sodium Level 136mEq/L (134-144) 135mEq/L (134-144) 133mEq/L (134-144) Potassium Level 4.5mEq/L (3.5-5.2) 4.4mEq/L (3.5-5.2) 4.5mEq/L (3.5-5.2) Chloride Level 101mEq/L (97-108) 99mEq/L (97-108) 98mEq/L (97-108) Carbon Dioxide Level 25mmol/L (18-29) 24mmol/L (18-29) 24mmol/L (18-29) Blood Urea Nitrogen 8mg/dL (6-20) 8mg/dL (6-20) 13mg/dL (6-20) Creatinine 0.48mg/dL (0.57-1.00) 0.45mg/dL (0.57-1.00) 0.49mg/dL (0.57-1.00) Estimat Glomerular Filtration Rate 206mL/min (>59) 222mL/min (>59) 201mL/min (>59) Glucose Level 116mg/dL (60-99) 100mg/dL (60-99) 99mg/dL (60-99) Calcium Level 8.8mg/dL (8.5-10.1) 8.9mg/dL (8.5-10.1) 8.7mg/dL (8.5-10.1) Total Bilirubin 0.2mg/dL (0.0-1.2) 0.2mg/dL (0.0-1.2) 0.2mg/dL (0.0-1.2) Aspartate Amino Transf (AST/SGOT) 11U/L (0-50) 16U/L (0-50) 16U/L (0-50) Alanine Aminotransferase (ALT/SGPT) 11U/L (0-32) 13U/L (0-32) 18U/L (0-32) Alkaline Phosphatase 74U/L (25-150) 79U/L (25-150) 81U/L (25-150) Total Protein 6.8g/dL (6.4-8.4) 7.8g/dL (6.4-8.4) 7.7g/dL (6.4-8.4) Albumin 3.2g/dL (3.4-5.0) 3.1g/dL (3.4-5.0) 3.0g/dL (3.4-5.0) Result Diagram: 06/26/16 0653 06/26/16 0653 X-Rays, CTs and MRIs Chest X Ray IMPRESSION: No acute or active disease is seen in the two-view chest. Cause of right-sided chest pain is not identified. Dictated by: King Sanchez M.D. on 06/21/2016 at 21:29 Approved by: King Sanchez M.D. on 06/21/2016 at 21:29 CT ABDOMEN AND PELVIS WITH CONTRAST IMPRESSION: 1. Bibasilar pulmonary emboli and likely right lower lobe atelectasis. Please see CT chest report of 04/22/17 for further details. 2. No acute intra-abdominal or pelvic process. Dictated by: Katie Washington M.D. on 06/22/2016 at 14:22 Approved by: Katie Washington M.D. on 06/22/2016 at 14:22 CT ANGIO CHEST PULMONARY EMBOLISM IMPRESSION: 1. Bilateral pulmonary emboli most significant in the lower lobes as above. Areas of opacification are present within the right lower lobe are likely medical representative of atelectasis. There is underlying air space disease such as pneumonia cannot be excluded. Dictated by: Katie Washington M.D. on 06/22/2016 at 14:20 Approved by: Katie Washington M.D. on 06/22/2016 at 14:20 Cardiac Echo Impressions The left ventricle is normal in size. The ejection fraction is estimated to be 60-65%. The right ventricle is normal size. The right ventricular systolic function is normal. Distal RV wall hypokinesis. There is trace tricuspid regurgitation. The right ventricular systolic pressure is estimated at 30 mmHg assuming a right atrial pressure of 3 mm Hg. The IVC is of normal diameter and collapses greater than 50% with a sniff. This suggests a low right atrial pressure of 3 mm Hg. Assessment & Plan 40-year-old female who presented to the emergency room with right sided back pain that began 2 days ago and worsening shortness of breath. A CTA of chest PE protocol was completed in the ED and showed multiple pulmonary emboli. Acute Multiple PEs, present on admission, active - Etiology at this time unknown, only risk factor identified Oral contraceptives - off heparin/lovenox to Warfarin bridge - therapeutic INR 06/25/2016 - f/u pending Hypercoagulable panel - c/w pain control and supportive care - Echo w/ RV hypokinesis, given report of lightheadedness and noted mild hypotension -pending TSH/cortisol for hypotesion work up --ongong percocet w/ pleuritic chest pain no better - Today INR is subtherapeutic at 1.7 hence we will reinitiate therapeutic Lovenox on 06/26/2016. Recheck INR in a.m. I think would like to see therapeutic for 2 days in a row prior to stopping the Lovenox. pending PT for ambulation monitor dizziness pending RD for diet restrictions on coumadin Dispo: likely 1-2 days now therapeutic INR, and lacking insurance, pending insurance but unclear until monday, anticipate needs for PCP, coumadin clinic and environmental officer f/u Pain Evaluation: Adequate Pain Control VTE Prophylaxis: Other (DVT PE protocol IV heparin) VTE Mechanical Devices: Intermittant Pneumatic CD Resuscitation Status: CPR: Attempt Resuscitation Time spent 30 minutes Kinjal Durand MD Jun 26, 2016 12:37
--- NOTE | 2016-06-26 13:43 | NUR ---
ACTIVITY Percocet 1 tab PO has been effective for pain control. Patient would rate her pain as 2/10 after the Percocet. Tolerating liquids PO and her diet well. Denies nausea. No emesis noted. Denies SOB. Patient has been ambulating independently in the room without any problems noted. Miralax and Senna was administered for complaints of constipation. No results at this time.
[2016-06-26 14:47] VITALS: BP 109/75; PULSE 83; RESP 16; O2SAT 97
--- NOTE | 2016-06-26 15:23 | NUR ---
Social Work: Continued Discharge Planning D: Pt discussed in morning rounds. Pt is not medically stable for discharge at this time and is still awaiting therapeutic INR. Pt's [facility] Medicaid is still listed at pending. Per process account notes, pt has completed application however it has not yet been submitted by [facility]. BRAND MGR left message for [facility] to request this be submitted as soon as possible as pt will likely have expensive medications at time of discharge. BRAND MGR informed MD that pt's insurance is still pending and may not have medication coverage at time of discharge. She will consider alternative blood thinners that may be more conducive to self-pay. A: Pt continues to be I during admission. P: Anticipate pt to discharge home via POV once medically stable; BRAND MGR to confirm with [facility] about pt's insurance status. FRITZ Crystal
--- NOTE | 2016-06-26 16:43 | NUR ---
PAIN/GI Percocet 1 tab PO has been adequate for complaints of back pain. Patients pain level is 2-3/10 after the pain medication. Tolerating liquids PO and her diet well. Denies nausea. No emesis noted. Denies SOB. Patient has been ambulating independently in the room. Gait is steady. Miralax and Senna has been administered for complaints of constipation. + BM this afternoon.
[2016-06-26] MEDS ORDERED: Warfarin 5 MG, Warfarin 2.5 MG PO ONE ×2 (17:00)
[2016-06-26 21:00] VITALS: BP 101/68; PULSE 81; RESP 16; O2SAT 94
--- NOTE | 2016-06-26 22:19 | NUR ---
Pain Pt states that she is comfortable and does not need any pain medication. Pt aware to notify nurse for any chest or back discomfort. Call light within reach. Care ongoing
[2016-06-27] MEDS: Sodium Chloride LOK Flush 10 mL Syringe IVFLUSH SCH ×3 (00:25→17:08)
[2016-06-27 05:30] VITALS: BP 107/74; PULSE 79; RESP 16; O2SAT 94
[2016-06-27 06:45] LABS: INR 2.13 ratio
[2016-06-27 09:08] LABS: Free Thyroxine Index 1.6 (1.2-4.9); Thyroxine (T4) 8.6 ug/dL (4.5-12.0)
[2016-06-27] MEDS: oxyCODONE-Acetamin 5-325 mg Tablet PO PRN ×2 (09:22→19:29)
--- NOTE | 2016-06-27 11:28 | PCM.PHAPRO ---
Progress Warfarin Management by Pharmacy: -Indication: PE -Home Dose: none, new diagnosis -Inr Goal: 2-3 -Concurrent Anticoagulation: Enoxaparin 100mg subq [id number] -Coagulation Trends: 06/22 Inr 1.01 warfarin 10mg 06/23 Inr 0.95 warfarin 10mg 06/24 Inr 1.97 warfarin 2mg 06/25 Inr 3.0 warfarin 2mg 06/26 Inr 1.7 warfarin 7.5mg 06/27 Inr 2.13 -Plan: Day 6 of warfarin management. inr is therapeutic today at 2.13. will continue Enoxaparin until is therapeutic x 2 days. warfarin dose this evening will be 4mg Muna Danielle [facility] Jun 27, 2016 11:28
--- NOTE | 2016-06-27 11:28 | PCM.PNMED ---
Subjective Date of Service Jun 27, 2016 Subjective Patient states she had 10 out 10 pain this morning improved with Percocet. Does note pleuritic pain but denies any constant chest pain or worsening shortness of breath. Today's INR is first aid therapeutic, will continue Lovenox and Coumadin today tomorrow Exam Vital Signs Vital Sign - Last Date Time Temp Pulse Resp B/P Pulse Ox O2 Delivery O2 Flow Rate FiO2 06/27/16 05:30 36.8 79 16 107/74 94 Room Air Intake and Output 06/26/16 06/26/16 06/27/16 Cumulative From/Thru 15:00 23:00 07:00 06/21/16 21:02 - 06/27/16 06:41 Intake Total 600 ml 520 ml 100 ml 24951 ml Output Total 1603 ml Balance 600 ml 520 ml 100 ml 9457 ml Intake Oral 600 ml 520 ml 100 ml 63036 ml IV Total 1000 ml Output Urine Total 1603 ml # Voids 3 4 3 21 # Bowel Movements 0 1 1 3 Exam Constitutional: Patient with some pain and discomfort with movement Head: Normocephalic atraumatic Chest: Clear to auscultation Cor: Regular rate and rhythm S1-S2 Abdomen: Soft nontender bowel sounds present Extremities: No pedal edema noted IVs and Medications Medications Reviewed: Medications were reviewed in detail Lab and Diagnostics Result Diagram: 06/27/16 0544 06/26/16 0653 X-Rays, CTs and MRIs Chest X Ray IMPRESSION: No acute or active disease is seen in the two-view chest. Cause of right-sided chest pain is not identified. Dictated by: King Sanchez M.D. on 06/21/2016 at 21:29 Approved by: King Sanchez M.D. on 06/21/2016 at 21:29 CT ABDOMEN AND PELVIS WITH CONTRAST IMPRESSION: 1. Bibasilar pulmonary emboli and likely right lower lobe atelectasis. Please see CT chest report of 04/22/17 for further details. 2. No acute intra-abdominal or pelvic process. Dictated by: Katie Washington M.D. on 06/22/2016 at 14:22 Approved by: Katie Washington M.D. on 06/22/2016 at 14:22 CT ANGIO CHEST PULMONARY EMBOLISM IMPRESSION: 1. Bilateral pulmonary emboli most significant in the lower lobes as above. Areas of opacification are present within the right lower lobe are likely membership sales representative of atelectasis. There is underlying air space disease such as pneumonia cannot be excluded. Dictated by: Katie Washington M.D. on 06/22/2016 at 14:20 Approved by: Katie Washington M.D. on 06/22/2016 at 14:20 Cardiac Echo Impressions The left ventricle is normal in size. The ejection fraction is estimated to be 60-65%. The right ventricle is normal size. The right ventricular systolic function is normal. Distal RV wall hypokinesis. There is trace tricuspid regurgitation. The right ventricular systolic pressure is estimated at 30 mmHg assuming a right atrial pressure of 3 mm Hg. The IVC is of normal diameter and collapses greater than 50% with a sniff. This suggests a low right atrial pressure of 3 mm Hg. Assessment & Plan 40-year-old female who presented to the emergency room with right sided back pain that began 2 days ago and worsening shortness of breath. A CTA of chest PE protocol was completed in the ED and showed multiple pulmonary emboli. Acute Multiple PEs, present on admission, active - Etiology at this time unknown, only risk factor identified Oral contraceptives , no family history, no recent travel - Continues with lovenox to Warfarin bridge - subtherapeutic INR 06/26, INR therapeutic today 06/27, recheck INR in the a.m. - f/u pending Hypercoagulable panel - c/w pain control and supportive care - Echo w/ RV hypokinesis, given report of lightheadedness and noted mild hypotension, improving -pending TSH/cortisol for hypotesion work up --ongong percocet w/ pleuritic chest pain, minimally controlled - Plan for therapeutic for 2 days in a row prior to stopping the Lovenox. pending PT for ambulation monitor dizziness pending RD for diet restrictions on coumadin Dispo: likely 1-2 days now therapeutic INR, and lacking insurance, anticipate needs for PCP, coumadin clinic and paper final inspector f/u Pain Evaluation: Pain not Controlled VTE Prophylaxis: Other (DVT PE protocol IV heparin) VTE Mechanical Devices: Intermittant Pneumatic CD Resuscitation Status: CPR: Attempt Resuscitation Time spent 35 minutes spent with evaluation and management, greater than 50% of time spent [id number] Attending Statement Likely able to discharge tomorrow if clinically stable with improvement in pleuritic chest pain and continue therapeutic INR Jamey Wetzel DO Jun 27, 2016 11:28
--- NOTE | 2016-06-27 11:29 | NUR ---
NUTRITION CONSULT: RD completed coumadin / vit K diet education on 06/22. No additional education needs at this time. Will continue to monitor.
[2016-06-27 12:25] VITALS: BP 107/70; PULSE 69; RESP 16; O2SAT 97
--- NOTE | 2016-06-27 14:34 | NUR ---
Social Work Continued Discharge Planning: SW conducted discharge planning update. Plan is home with spouse, pending INR therapeutic. EMR notes refect that patient to be monitored for therapeutic INR for 2 days prior to stopping Lovenox. Patient is [facility] Medicaid pending/self pay and [facility] following for Medicaid. SW to follow to ensure abilities to obtain medications upon discharge. SW consulted with UR specialist for possible outpatient Residency clinic appointment. SW to follow. PLAN: Home with spouse, pending clinical course. SW to follow for discharge medications. [facility] following [facility]
[2016-06-27 21:10] VITALS: BP 122/81; PULSE 76; RESP 18; O2SAT 98
[2016-06-28] MEDS: Sodium Chloride LOK Flush 10 mL Syringe IVFLUSH SCH ×2 (00:10→08:30)
--- NOTE | 2016-06-28 03:39 | NUR ---
Anxiety Patient stated that she feels anxious in regards to the Lovenox injection for this evening. She also stated that she does not like the saline flush as it causes her nausea. She asked me if I could only give her half a dose. Patient also complained of pain and pain medication was administered. VSS. Call light within reach.
[2016-06-28 05:25] VITALS: BP 100/67; PULSE 74; RESP 16; O2SAT 96
[2016-06-28 06:44] LABS: INR 3.36 ratio
--- NOTE | 2016-06-28 11:21 | PCM.DIMED ---
Discharge Instructions Date of Service Jun 28, 2016 Dates of Hospitalization Jun 22, 2016 at 04:18 Discharge Diagnosis Discharge Diagnosis Multiple bilateral PEs on oral contraceptives Diet Other (coumadin diet) Activity Other (as tolerated . No activites which can lead to falls or injury) Patient Instructions Follow-up with PCP in: 1 week Additional Information Needs follow up by coumadin clinic in 1-2 days. Kinjal Durand MD Jun 28, 2016 11:21
[2016-06-28] MEDS ORDERED: OXYC1TAB24 PO (11:23)
[2016-06-28] MEDS ORDERED: WARF4TAB PO (11:23)
--- NOTE | 2016-06-28 11:30 | PCM.DC.MED ---
Discharge Summary Date of Service Jun 28, 2016 Dates of Hospitalization Date of Hospital Admission Jun 22, 2016 at 04:18 Date of Discharge: Jun 28, 2016 Providers: Admitting Physician: Kinjal Durand MD Primary Care Physician: Surekha Attending Physician: Kinjal Durand MD Diagnosis at Time of Discharge Diagnosis at Time of Discharge Multiple bilateral PEs on oral contraceptives Procedures XRay, CTs & MRIs Chest X Ray IMPRESSION: No acute or active disease is seen in the two-view chest. Cause of right-sided chest pain is not identified. Dictated by: King Sanchez M.D. on 06/21/2016 at 21:29 Approved by: King Sanchez M.D. on 06/21/2016 at 21:29 CT ABDOMEN AND PELVIS WITH CONTRAST IMPRESSION: 1. Bibasilar pulmonary emboli and likely right lower lobe atelectasis. Please see CT chest report of 04/22/17 for further details. 2. No acute intra-abdominal or pelvic process. Dictated by: Katie Washington M.D. on 06/22/2016 at 14:22 Approved by: Katie Washington M.D. on 06/22/2016 at 14:22 CT ANGIO CHEST PULMONARY EMBOLISM IMPRESSION: 1. Bilateral pulmonary emboli most significant in the lower lobes as above. 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 There is underlying air space disease such as pneumonia cannot be excluded. Dictated by: Katie Washington M.D. on 06/22/2016 at 14:20 Approved by: Katie Washington M.D. on 06/22/2016 at 14:20 Cardiac Echo Impression The left ventricle is normal in size. The ejection fraction is estimated to be 60-65%. The right ventricle is normal size. The right ventricular systolic function is normal. Distal RV wall hypokinesis. There is trace tricuspid regurgitation. The right ventricular systolic pressure is estimated at 30 mmHg assuming a right atrial pressure of 3 mm Hg. The IVC is of normal diameter and collapses greater than 50% with a sniff. This suggests a low right atrial pressure of 3 mm Hg. Brief History This is a 40-year-old female who presents to the emergency room with right sided back pain started 2 days ago. She notes it was worse with movement and deep breath. She notes no particular injury. She notes that it got much worse today and presented to the emergency room. She was found on CTA of chest PE protocol to have multiple right-sided pulmonary emboli with one in the right main artery. She does currently use control pills had been on Norplant for about a year and that was removed last October and started control pills. She has had no recent long periods of immobilization. She has no family history of clotting disorders. She does not smoke. She does have shortness of breath with this but is hemodynamically stable. She denies any lower extremity edema. She denies any fevers or chills. She denies any lightheadedness. Denies any palpitations. Hospital Course 40-year-old female who presented to the emergency room with right sided back pain that began 2 days ago and worsening shortness of breath. A CTA of chest PE protocol was completed in the ED and showed multiple pulmonary emboli. Acute Multiple PEs, present on admission, active - Etiology at this time unknown, only risk factor identified Oral contraceptives , no family history, no recent travel - Continues with lovenox to Warfarin bridge - subtherapeutic INR 06/26, INR therapeutic today 06/27, recheck INR in the a.m. - f/u pending Hypercoagulable panel - c/w pain control and supportive care - Echo w/ RV hypokinesis, given report of lightheadedness and noted mild hypotension, improving -pending TSH/cortisol for hypotesion work up --ongong percocet w/ pleuritic chest pain, minimally controlled - Plan for therapeutic for 2 days in a row prior to stopping the Lovenox. - Patient achieved to therapeutic INR days in a row on June 28 and hence will be DC'd from a therapeutic Lovenox and continue with oral Coumadin. -Patient will be discharged to home on June 28. She is to have Coumadin clinic follow-up arranged in 1-2 days. -Also recommend follow-up with her primary care provider in [facility] residency clinic in one week sooner if problems. pending RD for diet restrictions on coumadin Dispo: likely 1-2 days now therapeutic INR, and lacking insurance, anticipate needs for PCP, coumadin clinic and floor refinisher f/u Exam Vital Signs (Last) Date Time Temp Pulse Resp B/P Pulse Ox O2 Delivery O2 Flow Rate FiO2 06/28/16 05:25 36.5 74 16 100/67 96 Room Air Test 06/22/16 01:06 06/22/16 01:21 06/22/16 02:20 06/22/16 04:15 Urine Color Yellow (YELLOW) Urine Appearance Clear (CLEAR,HAZY) Urine pH 6.0 (5.0-8.0) Urine Specific [place] >1.030 (1.003-1.035) Urine Protein Negativemg/dL (NEG,TRACE) Urine Glucose (UA) Negativemg/dL (NEGATIVE) Urine Ketones Negativemg/dL (NEGATIVE) Urine Occult Blood Negative (NEGATIVE) Urine Nitrite Negative (NEGATIVE) Urine Bilirubin Negative (NEGATIVE) Urine Urobilinogen Normalmg/dL (NORMAL) Urine Leukocyte Esterase Negative (NEGATIVE) Urine RBC 0-2/hpf (0-2) Urine WBC 0-5/hpf (0-5) Urine Epithelial Cells Moderate/hpf (NONE-MOD) Urine Crystals None seen (NONE SEEN) Urine Bacteria Few/hpf (NONE-FEW) Urine Hyaline Casts None/lpf (NONE) Urine Granular Casts None seen (NONE SEEN) Urine Waxy Casts None seen (NONE SEEN) Urine Red Blood Cell Casts None seen (NONE SEEN) Urine White Blood Cell Casts None seen (NONE SEEN) Urine Mucus None seen (None Seen) Urine Trichomonas None seen (NONE SEEN) Urine Yeast None (NONE SEEN) Urinalysis Comment None Urine Culture Reflexed Not indicated D-Dimer 7.5mg/L (<0.50) Hemoglobin A1c 5.5% (4.8-5.6) Hold Urine Received (Received) Functional Protein C 106% (73-180) Functional Protein S 75% (63-140) Test 06/22/16 07:25 06/22/16 15:58 06/23/16 04:55 06/26/16 06:53 Coagulation Factor V Leiden Comment (.) Coagulation Factor V Leiden Comment Comment (.) Troponin T < 0.010ug/L (0.0-0.011) Activated Partial Thromboplast Time 28.9sec (22.8-33.0) Anti-Thrombin III Antigen 64% (72-124) Triglycerides Level 100mg/dL (0-149) Cholesterol Level 126mg/dL (100-199) LDL Cholesterol, Calculated 72.000mg/dL (0-99) VLDL Cholesterol 20.000mg/dL HDL Cholesterol 34mg/dL (>39) Cholesterol/HDL Ratio 3.71 (0.0-4.4) Anti-Nuclear Antibody Screen Negative (Negative) Anti-Cardiolipin IgG Antibody < 9GPL U/mL (0-14) Anti-Cardiolipin IgA Antibody < 9APL U/mL (0-11) Anti-Cardiolipin IgM Antibody < 9MPL U/mL (0-12) White Blood Count 9.6th/mm3 (3.8-10.1) Red Blood Count 4.26mil/mm3 (3.90-5.20) Mean Corpuscular Volume 91.1fL (81-100) Mean Corpuscular Hemoglobin 30.3pg (27.0-35.0) Mean Corpuscular Hemoglobin Concent 33.2% (32.0-37.0) Red Cell Distribution Width 13.2% (12.3-15.4) Platelet Count 268bil/L (150-400) Neutrophils (%) (Auto) 64.5% (40-74) Lymphocytes (%) (Auto) 25.6% (14-46) Monocytes (%) (Auto) 7.4% (4-12) Eosinophils (%) (Auto) 1.8% (0-5) Basophils (%) (Auto) 0.4% (0-3) Sodium Level 133mEq/L (134-144) Potassium Level 4.5mEq/L (3.5-5.2) Chloride Level 98mEq/L (97-108) Carbon Dioxide Level 24mmol/L (18-29) Blood Urea Nitrogen 13mg/dL (6-20) Creatinine 0.49mg/dL (0.57-1.00) Estimat Glomerular Filtration Rate 201mL/min (>59) Glucose Level 99mg/dL (60-99) Calcium Level 8.7mg/dL (8.5-10.1) Total Bilirubin 0.2mg/dL (0.0-1.2) Aspartate Amino Transf (AST/SGOT) 16U/L (0-50) Alanine Aminotransferase (ALT/SGPT) 18U/L (0-32) Alkaline Phosphatase 81U/L (25-150) Total Protein 7.7g/dL (6.4-8.4) Albumin 3.0g/dL (3.4-5.0) Free Thyroxine Index 1.6 (1.2-4.9) Thyroxine (T4) 8.6ug/dL (4.5-12.0) Triiodothyronine (T3) Uptake 19% (24-39) Cortisol 19.8ug/dL (.) Test 06/27/16 05:44 06/28/16 05:50 Hemoglobin 13.3g/dL (12.0-15.6) Hematocrit 40.0% (35.0-46.0) Prothrombin Time 36.8sec (8.1-12.5) Prothromb Time International Ratio 3.36ratio Discharge Medications Discharge Medications Warfarin Sodium (Coumadin) 4 Mg Tablet 4 MG PO DAILY Prescribed by: KINJAL DURAND MD As needed oxyCODONE-Acetaminophen 5-325 mg (oxyCODONE-Acetaminophen 5-325 mg) 1 Each Tablet 1 TAB PO Q4H PRN PRN For Pain Prescribed by: KINJAL DURAND MD Followup Plan Disposition: Discharge to home Follow-up plan Patient is to follow-up with the Coumadin clinic at [facility] in 1-2 days. She is to follow up with her PCP at [facility] residency clinic in one week sooner if problems. Discharge Diet: Other (coumadin diet) Discharge Activity: Other (as tolerated . No activites which can lead to falls or injury) Follow-up with PCP in: 1 week Time spent 60 minutes Kinjal Durand MD Jun 28, 2016 11:30
[2016-06-28] MEDS: oxyCODONE-Acetamin 5-325 mg Tablet PO PRN (13:11)
--- NOTE | 2016-06-28 13:59 | NUR ---
Social Work Continued Discharge Planning: SW spoke to patient at bedside. Order for discharge acknowledged. Patient states plan as home with spouse and family support. SW provided patient with joaquin application for processing. Patient states she to follow up at local [facility] to obtain discharge medications. RCA following and notified of discharge to submit Medicaid application. UR specialist following for residency clinic follow up appointment. No other needs. SW to follow. PLAN: Home with family support and care. [employer]quin application provided. [facility] notified of discharge. No other needs Magdy HU
--- NOTE | 2016-06-28 15:26 | NUR ---
Arranged follow up appointment with Res[facility] Clinic for [facility] 06/30/16 850 check in for a 9 am appointment with . Updated BUSINESS MANAGEMENT CONSULTANT
== END 2016-06-28 14:10 | disposition home or self-care (01) | DRG 134 ==
LOC: SED 20:55 → OFED 06-22 04:18 → PCC 06-22 07:25 → OSC 06-23 13:53
PROVIDERS: ADMIT Specialist; ATTEND Specialist
DX: I26.99 Other pulmonary embolism without acute cor pulmonale (principal); R42 Dizziness and giddiness; Z79.3 Long term (current) use of hormonal contraceptives